=== PATIENT | male | born 1990 | race Two or more races ===

== ENCOUNTER 2017-03-30 10:39 | Emergency (ER) | payer OTHER ==
[~2017-03-30] VITALS: Ht 172.7 cm; Wt 56.7 kg
[~2017-03-30 10:39] MED LIST: DILAUDID2 MG PO
--- NOTE | 2017-03-30 11:08 | Emergency Room Report ---
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 N Clinical Suspician of Infection? N Mental Status: 1 - Regular (Normal Baseline) Sepsis Risk:Low Sepsis Risk Have you (or family members/close friends) recently traveled outside the [place]? N If Yes, where/when: Have you had exposure to infectious disease within the past month? TB? Other? Specify: Patient ingested cookie that was reportedly laced with marijuana-like substance he denies any pain currently. Has some complaint of feeling a little bit lightheaded but otherwise no pain no vomiting no nausea. He is here is for multiple individuals who ate the same cookie in the emergency room, all at the same time. Per report they had all eaten the brownies 2 hours prior to arrival. ALLERGIES Coded Allergies: No Known Allergies (03/30/17) Home Medications Active Scripts Hydromorphone Hcl (Dilaudid 2MG TAB) 2 MG PO Q6HP PRN BREAKTHROUGH SEVERE PAIN #10 TAB Prov: 12/20/13 History Medical History General More? Yes Additional hx: UNK Immunization Hx Ped.Immunizations UTD Yes DT/Tetanus 1-4 Years Ago Surgical Hx Previous Surgery?N Social History Smoking Hx Smoker: Unknown if Ever Smoked Tobacco: Yes Type Cigarettes Packs/day N/A Are you/the child exposed to second-hand smoke: No Review of Systems All Other Systems Reviewed and Negative Physical Exam Vital Signs Vital Signs Date Time Temp Pulse Resp B/P Pulse O2 O2 Flow FiO2 Ox Delivery Rate 03/30 1157 88 18 120/63 98 03/30 1041 98.0 102 18 165/100 99 General Appearance: Nontoxic sitting at bedside in no distress Head: Normocephalic, without obvious abnormality, atraumatic. Eyes: conjunctiva/corneas clear ENT: Mucous membranes moist. Neck: No jugular venous distention. Cardiac: regular rate and rhythm Lungs: Clear to auscultation bilaterally Abdomen: Nontender, Nondistended, positive bowel sounds, no rebound : No CVA tenderness Extremities: no edema Musculoskeletal: No chest wall tenderness Skin: No rashes or lesions to exposed skin. Neurologic: Alert. No gross focal deficits Psychiatric: Normal affect (Jose HESS, Rajan) General Appearance normal appearance Respiratory Status No: respiratory distress. Cardiovascular normal exam Neurologic alert Medical Decision Making LABS/Meds/Orders Pt receiving controlled substance in ED? No Comment 1107 Patient is here with multiple other individuals some of who ingested more than he did some of whom appear shaky and mildly agitated the patient appears in no distress here currently, sitting on the bedside. Will observe 1136 2/5 of the same overdose patients who are more symptomatic have low potassium levels. labs ekg ordered. 1239 patient's laboratory workup unremarkable he is still without complaints. He has been 4 hours since ingestion and patient is resting comfortably in no distress labs are normal and plan is discharge home Results/Orders Laboratory Tests 03/30/17 1146: Troponin I < 0.02 03/30/17 1146: Sodium 138, Potassium 4.4, Chloride 103, Carbon Dioxide 33 H, BUN 12, Creatinine 1.0, Estimated Creat Clear 88, Estimated GFR (MDRD) 89, Glucose 100, Calcium 9.3, Total Bilirubin 0.4, AST 18, ALT 24, Alkaline Phosphatase 108, Total Protein 7.7, Albumin 4.1, Globulin 3.6 H, Albumin/Globulin Ratio 1.1, WBC 9.4, RBC 5.51, Hgb 16.8, Hct 50.5, MCV 91.7, RDW 13.2, Plt Count 311, MPV 7.4, Gran % 83.7 H, Gran # 7.9, Lymphocytes % 10.0, Monocytes % 5.1, Eosinophils % 0.6, Basophils % 0.6, Lymphocytes # 1.0, Monocytes # 0.5, Eosinophils # 0.1, Basophils # 0.1, PUBS MCHC 33.2, MCH 30.4 Orders Procedure Date/time Status TROPONIN I 03/30 1154 Complete PROTECTION [employer]IEF [employer]ANT 03/30 1139 Active ELECTROCARDIOGRAM REQUEST 03/30 1131 Active CBC WITH AUTO DIFF 03/30 1131 Complete CHEM 12 PROFILE 03/30 1131 Complete 12 LEAD EKG-BESSON (INITIAL) 03/30 UNK Active Departure Departure Time of Disposition 1239 Disposition DC Home or Self Care(routine) Clinical Impression Primary Impression: Drug ingestion Qualifiers: Encounter type: initial encounter Injury intent: accidental or unintentional Qualified Code: T50.901A - Poisoning by unspecified drugs, medicaments and biological substances, accidental (unintentional), initial encounter Condition STABLE Referrals NO REFERRAL Patient Instructions DI for Drug Abuse and Drug Addiction Additional Instructions do not abuse drugs return if any problems or your symptoms Discharge Counseling Counseled pt/family regarding diagnosis, test results, medications/RX, home care, follow up needs ED Critical Care Critical Care No at 1241
[2017-03-30 11:57] LABS: HEMOGLOBIN 16.8 g/dL (14.1-18.0)
--- OUTSIDE RECORDS SUMMARY | 2017-03-30 12:47 | External Medical Summary Rpt | CCD ---
Demographics Preferred Language Japanese Marital Status Unknown Mandaen Affiliation Unknown Race Unknown Ethnic Group Unknown Author Author , KIRSTIN FULTON Address Unknown Phone Immunization No patient found.
--- OUTSIDE RECORDS SUMMARY | 2017-03-30 12:47 | External Medical Summary Rpt ---
Author Author KIRSTIN Evans, [employer] Organization [employer] Address Unknown Phone Unavailable
--- OUTSIDE RECORDS SUMMARY | 2017-03-30 12:47 | External Medical Summary Rpt | CCD ---
Author Author , KIRSTIN FULTON Address Unknown Phone [email or web address] Purpose Continuity of Care Document - through 2016
--- OUTSIDE RECORDS SUMMARY | 2017-03-30 12:47 | External Medical Summary Rpt | CCD ---
Author Author [employer] Organization [employer] Address Unknown Phone Unavailable Purpose Continuity of Care Document - through 2016
--- OUTSIDE RECORDS SUMMARY | 2017-03-30 12:47 | External Medical Summary Rpt | CCD ---
Demographics Preferred Language Palestinian Marital Status Unknown Zoroastrian Affiliation Unknown Race Unknown Ethnic Group Unknown Author Author , KIRSTIN FULTON Address Unknown Phone Immunization No patient found.
--- OUTSIDE RECORDS SUMMARY | 2017-03-30 12:47 | External Medical Summary Rpt | CCD ---
Author Author , KIRSTIN FULTON Address Unknown Phone [email or web address] Purpose Continuity of Care Document - through 2016
[2017-03-30 13:12] VITALS: BP 120/63
== END 2017-03-30 13:12 | disposition home or self-care (01) ==
LOC: ER 10:39
PROVIDERS: Emergency Medicine
DX: T50.901A Poisoning by unspecified drugs, medicaments and biological substances, accidental (unintentional), initial encounter (principal)